=== PATIENT | female | born 1955 | race Caucasian/White ===

== ENCOUNTER 2016-11-16 18:19 | Emergency (ER) | payer BC ==
[~2016-11-16] VITALS: Ht 162.6 cm; Wt 54.5 kg
[~2016-11-16 18:19] MED LIST: NORVASC PO
[2016-11-16] MEDS ORDERED: NAPROXEN375 MG PO (18:55)
[2016-11-16] MEDS ORDERED: NORCO1 TA1 PO (20:07)
[2016-11-16] MEDS ORDERED: AUGMENTIN500TAB PO (20:07)
[2016-11-16 20:46] VITALS: BP 117/63
== END 2016-11-16 20:46 | disposition home or self-care (01) | DRG 605 ==
LOC: ED 18:19
DX: S81.811A Laceration without foreign body, right lower leg, initial encounter (principal); S71.132A Puncture wound without foreign body, left thigh, initial encounter; I10 Essential (primary) hypertension; S60.512A Abrasion of left hand, initial encounter; S40.021A Contusion of right upper arm, initial encounter; S90.512A Abrasion, left ankle, initial encounter; F17.210 Nicotine dependence, cigarettes, uncomplicated; W54.0XXA Bitten by dog, initial encounter; Y92.009 Unspecified place in unspecified non-institutional (private) residence as the place of occurrence of the external cause

== ENCOUNTER 2016-11-18 11:38 | Emergency (ER) | payer BC ==
[~2016-11-18] VITALS: Ht 162.6 cm; Wt 60.0 kg
[~2016-11-18 11:38] MED LIST changes: +AUGMENTIN500TAB PO; +NAPROXEN375 MG PO; +NORCO1 TA1 PO
[2016-11-18] MEDS ORDERED: CLEOCIN300 MG PO (12:18)
[2016-11-18] MEDS ORDERED: LEVAQUIN500 MG PO (12:18)
[2016-11-18 12:40] VITALS: BP 140/62
== END 2016-11-18 12:40 | disposition home or self-care (01) | DRG 950 ==
LOC: ED 11:38
DX: S81.811D Laceration without foreign body, right lower leg, subsequent encounter (principal); S71.132D Puncture wound without foreign body, left thigh, subsequent encounter; S60.512D Abrasion of left hand, subsequent encounter; S90.512D Abrasion, left ankle, subsequent encounter; W54.0XXD Bitten by dog, subsequent encounter

== ENCOUNTER 2019-07-15 09:02 | Observation (INO) | payer BC ==
[~2019-07-15] VITALS: Ht 162.6 cm; Wt 54.1 kg
[~2019-07-15 09:02] MED LIST changes: +CLEOCIN300 MG PO; +LEVAQUIN500 MG PO
--- NOTE | 2019-07-15 09:07 | NUR ---
PT TO ROOM VIA WHEELCHAIR FOR BEDSIDE TRIAGE .
[2019-07-15 09:33] LABS: HEMATOCRIT 36.6 % (37.0-47.0); HEMOGLOBIN 12.4 g/dl (12.0-16.0); IMMATURE GRANULOCYTES 0.2 % (0.0-5.0); MEAN CELL VOLUME 91.5 fL CALC (80.0-100.0); MEAN CORPUSCULAR HGB CONC 33.9 g/dL CAL (32.0-36.0); NEUT# 3.33 thou/uL (2.00-7.15); RED CELL DISTRI WIDTH 11.5 % (11.5-15.5)
[2019-07-15 09:47] LABS: ALBUMIN 4.4 g/dL (3.2-5.0); ALKALINE PHOSPHATASE 107 u/l (38-126); ANION GAP 10 (6-22 (CALC)); BILIRUBIN, TOTAL 0.4 mg/dL (0.0-1.4); BUN 12 mg/dL (8-23); BUN/CREATININE RATIO 16 (12-20 (CALC)); CARBON DIOXIDE 27 mmol/l (22-30); CHLORIDE 106 mmol/l (95-108); CREATININE 0.8 mg/dL (0.5-1.0); GFR > 60 ML/MIN (>=60 (CALC)); GFR FOR AFR.AMER. > 60 ML/MIN (>=60 (CALC)); INTERNATIONAL NORMALIZED RATIO 0.9 RATIO (0.7-1.3); POTASSIUM 3.9 mmol/l (3.5-5.1); PROTHROMBIN TIME 9.9 SECONDS (9.0-12.5); SGOT/AST 24 u/l (9-36); SODIUM 139 mmol/l (137-146); TOTAL PROTEIN 7.2 g/dL (6.3-8.2)
[2019-07-15 09:59] LABS: MYOGLOBIN 37 ng/mL (0 - 62)
--- NOTE | 2019-07-15 10:06 | NUR ---
DR CHAU AT BEDSIDE
[2019-07-15 10:09] LABS: URINE BILIRUBIN - DIPSTICK NEGATIVE (NEGATIVE); URINE BLOOD DIPSTICK NEGATIVE (NEGATIVE); URINE COLOR YELLOW; URINE GLUCOSE - DIPSTICK NEGATIVE (NEGATIVE); URINE KETONE NEGATIVE (NEGATIVE); URINE LEUK ESTERASE NEGATIVE (NEGATIVE); URINE NITRITE - DIPSTICK NEGATIVE (Negative); URINE PROTEIN - DIPSTICK NEGATIVE (NEG-TRACE); URINE SPECIFIC GRAVITY 1.015; URINE UROBILINOGEN - DIPSTICK 0.2 E.U./dL (0.2)
[2019-07-15] MEDS ORDERED: AMLODIPINE BESYL5 MG PO (10:57)
[2019-07-15] MEDS ORDERED: BUSPAR10 M1 PO (10:58)
[2019-07-15] MEDS ORDERED: CYCLOBENZAPRINE10 MG PO (10:58)
--- NOTE | 2019-07-15 11:00 | NUR ---
pt resting on stretcher; no s/s of distress noted; vss; pt denies any continued tingling to right side or weakness; advised of continued wait time for admission; will continue to monitor
--- NOTE | 2019-07-15 11:27 | NUR ---
REPORT RECEIVED FROM TANISHA IN ED, PT ARRIVED ON UNIT @ 1127 TRANSPORTED VIA W/C BY ED STAFF. ALERT AND ORIENTED X 4, NO C/O DISCOMFORT, ORIENTED TO ROOM AND CALL ESPINO, CONNECTED TO CARDIAC AND VS MONITORING, ALL NEEDS ADDRESSED.
--- NOTE | 2019-07-15 11:57 | NUR ---
Admission Note Report Given to: [facility] EM Transported by: Wheelchair X Stretcher Transported with: X Nurse Transporter X Patent IV O2 X Administrative Receptionist Location: X ICU [facility]
[2019-07-15 12:00] VITALS: BP 145/68
[2019-07-15 16:16] VITALS: BP 131/66
--- NOTE | 2019-07-15 16:22 | NUR ---
RESTING IN BED, ALL NEEDS ADDRESSED.
--- NOTE | 2019-07-15 17:11 | NUR ---
DR BARTLETT CONTACTED VIA PHONE TO REVIEW HOME MEDS, ADVISED TO CONTINUE HOME MEDS CURRENT, ORDERS FAXED TO .
--- NOTE | 2019-07-15 18:45 | NUR ---
RECEIVED REPORT FROM MARIA ANTONIA.
--- NOTE | 2019-07-15 18:58 | NUR ---
PT AWAKE AND ALERT, NO NEEDS OR COMPLAINTS AT THIS TIME. CALL ESPINO IN REACH.
[2019-07-15 20:00] VITALS: BP 134/59
--- NOTE | 2019-07-15 20:00 | NUR ---
L EYE SLIGHTY CLOSED. PT RELATED THAT IS NOT NEW, RESULTED FROM BELLS PALSEY.
--- NOTE | 2019-07-15 20:00 | NUR ---
PT AWAKE AND ALERT, NO NEW NEURO DEFICITS NOTED. PT WITH HX BELLS PALSEY AND FACIAL PARALYSIS. MOUTH WITH SLIGHT DROOP. NO NEEDS AT THIS TIME. CALL ESPINO IN PLACE.
--- NOTE | 2019-07-15 22:15 | NUR ---
PT C/O RESTLESS LEGS. REQUESTED FLEXERIL.
[2019-07-16] VITALS: BP 124/63
--- NOTE | 2019-07-16 | NUR ---
PT WITH EYES CLOSED, RESPONDED TO VERBAL STIMULI. NO CHANGE NEURO ASSESSMENT. NO NEEDS AT THIS TIME. CALL ESPINO IN REACH.
[2019-07-16 04:00] VITALS: BP 118/63
--- NOTE | 2019-07-16 04:00 | NUR ---
PT AWAKE AND ALERT, NO CHANGE NEURO CHECK. NO NEEDS AT THIS TIME. CALL ESPINO IN REACH.
--- NOTE | 2019-07-16 05:03 | NUR ---
LAB AT BEDSIDE.
[2019-07-16 05:11] LABS: HEMATOCRIT 36.2 % (37.0-47.0); HEMOGLOBIN 12.1 g/dl (12.0-16.0); IMMATURE GRANULOCYTES 0.1 % (0.0-5.0); MEAN CELL VOLUME 91.9 fL CALC (80.0-100.0); MEAN CORPUSCULAR HGB 30.7 pG CALC (26.0-32.0); MEAN CORPUSCULAR HGB CONC 33.4 g/dL CAL (32.0-36.0); NEUT# 3.43 thou/uL (2.00-7.15); RED BLOOD COUNT 3.94 mill/uL (4.20-5.60); RED CELL DISTRI WIDTH 11.6 % (11.5-15.5)
[2019-07-16 05:46] LABS: ALBUMIN 3.9 g/dL (3.2-5.0); ALKALINE PHOSPHATASE 107 u/l (38-126); ANION GAP 8 (6-22 (CALC)); BILIRUBIN, TOTAL 0.5 mg/dL (0.0-1.4); BUN 11 mg/dL (8-23); BUN/CREATININE RATIO 15 (12-20 (CALC)); CALCULATED LDLCHOLESTEROL 145 mg/dL (62-129 (CALC)); CARBON DIOXIDE 30 mmol/l (22-30); CHLORIDE 106 mmol/l (95-108); CHOLESTEROL HDL RATIO 4.1 (<4.4 (CALC)); CREATININE 0.7 mg/dL (0.5-1.0); GFR > 60 ML/MIN (>=60 (CALC)); GFR FOR AFR.AMER. > 60 ML/MIN (>=60 (CALC)); HDL CHOLESTEROL 57 mg/dL (>=40); POTASSIUM 3.9 mmol/l (3.5-5.1); SGOT/AST 26 u/l (9-36); SODIUM 139 mmol/l (137-146); TOTAL CHOLESTEROL 233 mg/dl (0-199); TOTAL PROTEIN 6.5 g/dL (6.3-8.2); TOTAL TRIGLYCERIDES 155 mg/dl (30-149); VLDL CHOLESTROL 31 mg/dl (1-41 (CALC))
[2019-07-16 06:00] VITALS: BP 116/66
--- NOTE | 2019-07-16 06:18 | NUR ---
PT WITH EYES CLOSED, LYING ON L SIDE. NO DISTRESS NOTED. CALL ESPINO IN REACH.
--- NOTE | 2019-07-16 06:49 | NUR ---
REPORT TO ATUL CUADRA.
--- NOTE | 2019-07-16 07:00 | NUR ---
REPORT RECEIVED FROM OUTGOING NURSE, PT RESTING IN BED AND WATCHING TV. PT ALERT AND ORIENTED X 4. SHADY CHECK NEGATIVE. LUNGS CLEAR/CLEAR. NORMAL SINUS ON THE MONITOR. PULSES NORMAL, NO EDEMA. BOWEL SOUNDS + ALL QUADRANTS. WILL CONTINUE TO MONITOR.
[2019-07-16 08:00] VITALS: BP 116/60
--- NOTE | 2019-07-16 09:30 | NUR ---
PT TO MRI
--- NOTE | 2019-07-16 10:56 | NUR ---
PT RETURNED FROM MRI AND ULTRASOUND. BACK ON MONITOR, ALL VSS STABLE AT THIS TIME.
[2019-07-16 12:00] VITALS: BP 143/65
[2019-07-16] MEDS ORDERED: ATORVASTATIN CA40 MG PO (12:54)
[2019-07-16] MEDS ORDERED: ADLT ASA LOW81 MG PO (12:54)
--- NOTE | 2019-07-16 13:20 | NUR ---
DISCHARGE ORDERS RECEIVED FROM DR LEE
--- NOTE | 2019-07-16 13:30 | NUR ---
PT GIVEN DISCHARGE INSTRUCTIONS PER DR ORDER, PT VERBALIZES UNDERSTANDING OF ALL INFORMATION PROVIDED AND WILL FOLLOW UP WITH PCP.
--- NOTE | 2019-07-16 13:30 | NUR ---
Discharge instructions given. Patient verbalizes understanding of same. Discharged in stable condition via Wheelchair to Home with family. All belongings sent with pt.
--- NOTE | 2019-07-16 14:25 | NUR ---
Discharge instructions given. Patient verbalizes understanding of same. Discharged in stable condition via Wheelchair to Home with family. All belongings sent with pt.
== END 2019-07-16 14:25 | disposition home or self-care (01) | DRG 69 ==
LOC: ED 09:02 → ED-I 10:28 → ED 10:46 → ICU 10:47 → ED-I 10:47 → ICU 11:08
PROVIDERS: Emergency Medicine; Nurse Practitioner Family; ADMIT Internal Medicine; ATTEND Internal Medicine
DX: G45.9 Transient cerebral ischemic attack, unspecified (principal); I10 Essential (primary) hypertension; G51.0 Bell's palsy; M21.372 Foot drop, left foot; F17.210 Nicotine dependence, cigarettes, uncomplicated; Z86.011 Personal history of benign neoplasm of the brain
CPT/HCPCS: J1650

== ENCOUNTER 2021-04-15 13:44 | Emergency (ER) | payer MEDICARE, OTHER ==
[~2021-04-15] VITALS: Ht 157.5 cm; Wt 62.0 kg
[~2021-04-15 13:44] MED LIST changes: +ADLT ASA LOW81 MG PO; +ALENDRONATE10 MG PO; +AMITRIPTYLIN10 MG PO; +AMLODIPINE BESYL5 MG PO; +ATORVASTATIN CA40 MG PO; +B-121000 MC1 PO; +BAYER ASPIRIN E81 MG PO; +BUSPAR10 M1 PO; +CYCLOBENZAPRINE10 MG PO; +GARLIC10 MG PO; +RED YEAST RICE300 MG PO; +VITAMIN D PO
[2021-04-15 15:09] LABS: HEMATOCRIT 38.4 % (37.0-47.0); HEMOGLOBIN 12.5 g/dl (12.0-16.0); IMMATURE GRANULOCYTES 0.1 % (0.0-5.0); MEAN CELL VOLUME 92.1 fL CALC (80.0-100.0); MEAN CORPUSCULAR HGB CONC 32.6 g/dL CAL (32.0-36.0); NEUT# 4.41 thou/uL (2.00-7.15); RED BLOOD COUNT 4.17 mill/uL (4.20-5.60); RED CELL DISTRI WIDTH 11.9 % (11.5-15.5)
[2021-04-15 15:24] LABS: ALBUMIN 4.3 g/dL (3.2-5.0); ALKALINE PHOSPHATASE 164 u/l (38-126); ANION GAP 10 (6-22 (CALC)); BILIRUBIN, TOTAL 0.5 mg/dL (0.0-1.4); BUN 11 mg/dL (8-23); BUN/CREATININE RATIO 14 (12-20 (CALC)); CARBON DIOXIDE 27 mmol/l (22-30); CHLORIDE 104 mmol/l (95-108); CREATININE 0.8 mg/dL (0.5-1.0); GFR > 60 ML/MIN (>=60 (CALC)); GFR FOR AFR.AMER. > 60 ML/MIN (>=60 (CALC)); LIPASE 44 u/l (23-300); POTASSIUM 3.4 mmol/l (3.5-5.1); SGOT/AST 57 u/l (9-36); SODIUM 138 mmol/l (137-146); TOTAL PROTEIN 7.9 g/dL (6.3-8.2)
[2021-04-15 16:48] LABS: URINE BILIRUBIN - DIPSTICK NEGATIVE (NEGATIVE); URINE BLOOD DIPSTICK NEGATIVE (NEGATIVE); URINE COLOR YELLOW; URINE GLUCOSE - DIPSTICK NEGATIVE (NEGATIVE); URINE KETONE NEGATIVE (NEGATIVE); URINE LEUK ESTERASE NEGATIVE (NEGATIVE); URINE PH 5.5 (4.5-8.0); URINE PROTEIN - DIPSTICK NEGATIVE (NEG-TRACE); URINE SPECIFIC GRAVITY 1.015; URINE UROBILINOGEN - DIPSTICK 0.2 E.U./dL (0.2)
[2021-04-15 16:49] LABS: URINE NITRITE - DIPSTICK NEGATIVE (Negative)
[2021-04-15 19:14] VITALS: BP 138/70
== END 2021-04-15 20:20 | disposition home or self-care (01) ==
LOC: ED 13:44
PROVIDERS: Family Medicine
DX: R10.13 Epigastric pain (principal); I10 Essential (primary) hypertension; F41.9 Anxiety disorder, unspecified; Z86.73 Personal history of transient ischemic attack (TIA), and cerebral infarction without residual deficits
CPT/HCPCS: Q9967

== ENCOUNTER 2021-08-27 06:48 | Day surgery (SDC) | payer MEDICARE, OTHER ==
[~2021-08-27] VITALS: Ht 162.6 cm; Wt 60.3 kg
[~2021-08-27 06:48] MED LIST changes: +AMITRIPTYLINE H25 MG; +BIOTIN MAXI10000 MC1; +CALCIUM600 M1 PO
[2021-08-27 08:40] VITALS: BP 139/77
[2021-08-31] MEDS ORDERED: CLARITHROMYC500 M2 PO (15:19)
[2021-08-31] MEDS ORDERED: AMOXICILLIN500 M2 PO (15:19)
[2021-08-31] MEDS ORDERED: OMEPRAZOLE20 MG PO (15:19)
[2021-09-14] MEDS ORDERED: OMEPRAZOLE20 MG PO (13:13)
== END 2021-08-27 09:00 | disposition home or self-care (01) ==
LOC: ORM 06:48
PROVIDERS: ATTEND Surgery
PROC: 0DB48ZX Excision of Esophagogastric Junction, Via Natural or Artificial Opening Endoscopic, Diagnostic (ICD-10-PCS; principal; 2021-08-27)
PROC: 0DB78ZX Excision of Stomach, Pylorus, Via Natural or Artificial Opening Endoscopic, Diagnostic (ICD-10-PCS; 2021-08-27)
DX: K29.50 Unspecified chronic gastritis without bleeding (principal); K22.70 Barrett's esophagus without dysplasia; K44.9 Diaphragmatic hernia without obstruction or gangrene; I10 Essential (primary) hypertension; F41.9 Anxiety disorder, unspecified

== ENCOUNTER 2022-01-27 15:49 | Emergency (ER) | payer OTHER, MEDICARE ==
[~2022-01-27] VITALS: Ht 162.6 cm; Wt 67.0 kg
[~2022-01-27 15:49] MED LIST changes: +AMOXICILLIN500 M2 PO; +CLARITHROMYC500 M2 PO; +OMEPRAZOLE20 MG PO
[2022-01-27 15:55] VITALS: BP 118/92
[2022-01-27 16:00] VITALS: BP 137/67
[2022-01-27 16:15] VITALS: BP 126/64
[2022-01-27 16:31] VITALS: BP 136/64
[2022-01-27] MEDS ORDERED: NAPROXEN500 MG PO (17:46)
[2022-01-27] MEDS ORDERED: FLEXERIL5 M1 PO (17:46)
[2022-01-27 18:07] VITALS: BP 126/64
== END 2022-01-27 18:15 | disposition home or self-care (01) | DRG 552 ==
LOC: ED 15:49
DX: M54.42 Lumbago with sciatica, left side (principal); I10 Essential (primary) hypertension; F41.9 Anxiety disorder, unspecified; Z86.73 Personal history of transient ischemic attack (TIA), and cerebral infarction without residual deficits; Z98.1 Arthrodesis status

== ENCOUNTER 2022-03-09 09:34 | Emergency (ER) | payer MEDICARE, OTHER ==
[~2022-03-09] VITALS: Ht 162.6 cm; Wt 63.2 kg
[~2022-03-09 09:34] MED LIST changes: +FLEXERIL5 M1 PO; +NAPROXEN500 MG PO
[2022-03-09 10:22] VITALS: BP 128/64
[2022-03-09] MEDS ORDERED: CELEBREX100 M1 PO (18:07)
[2022-03-09] MEDS ORDERED: DECADRON4 MG PO (18:07)
[2022-03-09] MEDS ORDERED: NEURONTIN300 MG PO (18:07)
== END 2022-03-09 13:56 | disposition home or self-care (01) ==
LOC: ED 09:34 → LWOBS 13:50 → ED 13:56
DX: Z53.21 Procedure and treatment not carried out due to patient leaving prior to being seen by health care provider (principal)

== ENCOUNTER 2022-03-09 14:07 | Emergency (ER) | payer MEDICARE, OTHER ==
[~2022-03-09] VITALS: Ht 162.6 cm; Wt 63.2 kg
[2022-03-09 15:04] VITALS: BP 153/79
[2022-03-09 15:30] VITALS: BP 141/73
[2022-03-09 16:00] VITALS: BP 147/76
[2022-03-09 17:01] VITALS: BP 104/88
[2022-03-09 17:10] LABS: URINE BILIRUBIN - DIPSTICK NEGATIVE (NEGATIVE); URINE BLOOD DIPSTICK NEGATIVE (NEGATIVE); URINE COLOR YELLOW; URINE GLUCOSE - DIPSTICK NEGATIVE (NEGATIVE); URINE KETONE 15 mg/dL (NEGATIVE); URINE LEUK ESTERASE NEGATIVE (NEGATIVE); URINE PROTEIN - DIPSTICK NEGATIVE (NEG-TRACE); URINE SPECIFIC GRAVITY >=1.030; URINE UROBILINOGEN - DIPSTICK 0.2 E.U./dL (0.2)
[2022-03-09 17:12] LABS: URINE NITRITE - DIPSTICK NEGATIVE (Negative)
[2022-03-09] MEDS ORDERED: NEURONTIN300 MG PO (18:07)
[2022-03-09] MEDS ORDERED: CELEBREX100 M1 PO (18:07)
[2022-03-09] MEDS ORDERED: DECADRON4 MG PO (18:07)
[2022-03-09 18:11] VITALS: BP 104/88
[2022-03-12] MEDS ORDERED: DECADRON4 MG PO (12:44)
== END 2022-03-09 18:20 | disposition home or self-care (01) ==
LOC: ED 14:07
PROVIDERS: Emergency Medicine
DX: M54.32 Sciatica, left side (principal); M54.31 Sciatica, right side; F41.9 Anxiety disorder, unspecified; Z86.73 Personal history of transient ischemic attack (TIA), and cerebral infarction without residual deficits

== ENCOUNTER 2022-03-12 12:47 | Emergency (ER) | payer MEDICARE, OTHER ==
[2022-03-12] VITALS (7 sets, daily range): BP systolic 126–154; BP diastolic 72–80
[~2022-03-12] VITALS: Ht 162.6 cm; Wt 63.0 kg
[~2022-03-12 12:47] MED LIST changes: +CELEBREX100 M1 PO; +DECADRON4 MG PO; +NEURONTIN300 MG PO
[2022-03-12] MEDS ORDERED: PREDNISONE10 MG PO (16:55)
[2022-03-12] MEDS ORDERED: HYDROCO/APAP1 TA9 PO (16:55)
[2022-03-12] MEDS ORDERED: METHOCARBAMOL500 MG PO (16:56)
== END 2022-03-12 17:05 | disposition home or self-care (01) ==
LOC: ED 12:47
DX: M54.32 Sciatica, left side (principal); I10 Essential (primary) hypertension; F41.9 Anxiety disorder, unspecified; T38.0X6A Underdosing of glucocorticoids and synthetic analogues, initial encounter; Z91.138 Patient's unintentional underdosing of medication regimen for other reason; Z86.73 Personal history of transient ischemic attack (TIA), and cerebral infarction without residual deficits

== ENCOUNTER 2022-03-23 15:54 | Emergency (ER) | payer MEDICARE, OTHER ==
[~2022-03-23] VITALS: Ht 162.6 cm; Wt 63.0 kg
[~2022-03-23 15:54] MED LIST changes: +HYDROCO/APAP1 TA9 PO; +METHOCARBAMOL500 MG PO; +PREDNISONE10 MG PO
[2022-03-23 17:09] VITALS: BP 146/75
[2022-03-23] MEDS ORDERED: CYCLOBENZAPRINE10 MG PO (20:28)
[2022-03-23] MEDS ORDERED: NAPROXEN500 MG PO (20:28)
== END 2022-03-23 20:45 | disposition home or self-care (01) ==
LOC: ED 15:54
DX: M47.816 Spondylosis without myelopathy or radiculopathy, lumbar region (principal); I10 Essential (primary) hypertension; F41.9 Anxiety disorder, unspecified; Z86.73 Personal history of transient ischemic attack (TIA), and cerebral infarction without residual deficits